=== PATIENT | male | born 1980 | race Caucasian/White ===

== ENCOUNTER 2019-07-11 03:26 | Emergency (ER) | payer OTHER ==
[~2019-07-11] VITALS: Ht 177.8 cm; Wt 72.0 kg
[2019-07-11] MEDS ORDERED: CEPH25SS PO (03:33)
[2019-07-11 04:21] LABS: BASO # 0.1 10^3/uL (0.0-0.2); BASO % 0.6 % (0.0-1.0); EOS # 0.3 10^3/uL (0.0-0.5); EOS % 2.6 % (0.0-3.0); HEMATOCRIT 43.4 % (42.0-52.0); HEMOGLOBIN 14.1 g/dl (13.5-17.5); LYMPH # 2.4 10^3/uL (1.5-5.0); LYMPH % 23.6 % (24.0-44.0); MEAN CORPUSCULAR HEMOGLOBIN 31.3 pg (27.0-33.0); MEAN CORPUSCULAR HGB CONC 32.5 g/dl (32.0-36.5); MEAN CORPUSCULAR VOLUME 96.4 fl (80.0-96.0); MONO # 1.1 10^3/uL (0.0-0.8); MONO % 10.8 % (0.0-5.0); NEUTROPHILS # 6.3 10^3/uL (1.5-8.5); NEUTROPHILS % 62.1 % (36.0-66.0); PLATELET COUNT, AUTOMATED 254 10^3/uL (150-450); WHITE BLOOD COUNT 10.1 10^3/uL (4.0-10.0)
[2019-07-11 04:56] LABS: ALBUMIN 3.5 GM/DL (3.2-5.2); ALT/SGPT 27 U/L (12-78); BILIRUBIN,TOTAL 0.3 MG/DL (0.2-1.0); BLOOD UREA NITROGEN 15 MG/DL (7-18); CALCIUM LEVEL 8.7 MG/DL (8.5-10.1); CARBON DIOXIDE LEVEL 29 MEQ/L (21-32); CHLORIDE LEVEL 108 MEQ/L (98-107); CREATININE FOR GFR 1.11 MG/DL (0.70-1.30); GLOMERULAR FILTRATION RATE > 60.0 (>60); GLUCOSE, FASTING 99 MG/DL (70-100); POTASSIUM SERUM 4.4 MEQ/L (3.5-5.1); SODIUM LEVEL 141 MEQ/L (136-145); TOTAL PROTEIN 6.6 GM/DL (6.4-8.2)
[2019-07-11] MEDS ORDERED: ISOVUE-370 76% 100ML VIAL (Q9967) As Ordered ONE (05:18)
--- NOTE | 2019-07-11 05:45 | REPVR ---
PROCEDURE INFORMATION: Exam: CT Maxillofacial With Contrast, Sinus Exam date and time: 07/11/2019 5:01 AM Age: 39 years old Clinical indication: Mass, lump, or swelling; Other: Right eyebrow; Additional info: R-supraorbital swelling, concern for pre-septal cellulitis TECHNIQUE: Imaging protocol: CT Maxillofacial with intravenous contrast. Focus on the sinuses. Radiation optimization: All CT scans at this facility use at least one of these dose optimization techniques: automated exposure control; mA and/or kV adjustment per patient size (includes targeted exams where dose is matched to clinical indication); or iterative reconstruction. Contrast material: ISO; Contrast volume: 75 ml; Contrast route: AC; COMPARISON: No relevant prior studies available. FINDINGS: Frontal sinuses: Normal. No air-fluid levels. Ethmoid air cells: Normal. No air-fluid levels. Sphenoid sinuses: Normal. No air-fluid levels. Maxillary sinuses: Normal. No air-fluid levels. Ostiomeatal units are patent. Orbits: No involvement of the right orbital fat to suggest orbital cellulitis at this time. Nasal cavity/Septum: Unremarkable. Soft tissues: Right superior and lateral periorbital soft tissue swelling. Small rim enhancing superficial abscess along the superior lateral right periorbital soft tissues measuring 9 mm on series 201, image 34. Bones/joints: Unremarkable. IMPRESSION: 1. Right superior and lateral periorbital soft tissue swelling. Small rim enhancing superficial abscess along the superior lateral right periorbital soft tissues measuring 9 mm on series 201, image 34. 2. No involvement of the right orbital fat to suggest orbital cellulitis at this time. Electronically signed by: Levi Mari On 07/11/2019 05:45:11 AM
[2019-07-11 06:32] VITALS: BP 117/65
== END 2019-07-11 06:39 | disposition home or self-care (01) ==
LOC: M ED 03:26
DX: L02.01 Cutaneous abscess of face (principal); L03.211 Cellulitis of face; F17.210 Nicotine dependence, cigarettes, uncomplicated; Z79.2 Long term (current) use of antibiotics
CPT/HCPCS: 36415; 70487; 80053; 85025; 86140; 99283; Q9967

== ENCOUNTER 2019-11-21 09:55 | Emergency (ER) | payer OTHER ==
[~2019-11-21] VITALS: Ht 177.8 cm; Wt 71.0 kg
[~2019-11-21 09:55] MED LIST: CEPH25SS PO
[2019-11-21] MEDS ORDERED: IBUPROFEN 800 MG TAB PO ONE (11:00)
[2019-11-21 11:12] LABS: HEMOGLOBIN 13.7 g/dl (13.5-17.5); MEAN CORPUSCULAR HEMOGLOBIN 31.4 pg (27.0-33.0); MEAN CORPUSCULAR HGB CONC 33.4 g/dl (32.0-36.5); PLATELET COUNT, AUTOMATED 255 10^3/uL (150-450); RED BLOOD COUNT 4.36 10^6/uL (4.30-6.10); WHITE BLOOD COUNT 6.5 10^3/uL (4.0-10.0)
--- NOTE | 2019-11-21 11:28 | REP ---
Clinical: Lower back pain extending to the right lower extremity. Peak: Axial noncontrast images from mid T11 through mid sacrum with coronal and sagittal re-formations. Findings: Vertebral bodies are intact and there is no evidence for acute fracture / compression injury or subluxation. Axial images suggest mild hypertrophy to the ligamentum flavum with minimal generalized canal stenosis. Small disc bulges at the L3-4 through L5-S1 levels cannot be excluded along with mild disc space narrowing at L5-S1. Impression: Mild canal stenosis with small posterior disc bulges are suggested. Evaluation is limited due to poor contrast, and if the patient remains symptomatic non-emergent MRI of the lumbosacral spine should be considered for further investigation. Electronically Signed by rPatik De La Cruz MD 11/21/2019 11:19 A
[2019-11-21 11:42] LABS: ALBUMIN 3.8 GM/DL (3.2-5.2); ALT/SGPT 17 U/L (12-78); BILIRUBIN,DIRECT < 0.1 MG/DL (0.0-0.2); BILIRUBIN,TOTAL 0.4 MG/DL (0.2-1.0); BLOOD UREA NITROGEN 15 MG/DL (7-18); CALCIUM LEVEL 8.5 MG/DL (8.5-10.1); CARBON DIOXIDE LEVEL 28 MEQ/L (21-32); CHLORIDE LEVEL 110 MEQ/L (98-107); GLOMERULAR FILTRATION RATE > 60.0 (>60); GLUCOSE, FASTING 80 MG/DL (70-100); LIPASE 74 U/L (73-393); POTASSIUM SERUM 4.3 MEQ/L (3.5-5.1); SODIUM LEVEL 143 MEQ/L (136-145); TOTAL PROTEIN 7.3 GM/DL (6.4-8.2)
[2019-11-21] MEDS ORDERED: IBUP80TA PO (11:59)
[2019-11-21] MEDS ORDERED: LIDO5DIS41 TOP (11:59)
[2019-11-21 12:13] VITALS: BP 119/72
--- NOTE | 2019-11-22 07:37 | ED PDOC ---
Post-Departure Follow-Up ct ls spine faxed to dr escalante for fu Dae Mosquera MD Nov 22, 2019 07:37
== END 2019-11-21 12:21 | disposition home or self-care (01) ==
LOC: M ED 09:55
DX: M51.26 Other intervertebral disc displacement, lumbar region (principal); F17.218 Nicotine dependence, cigarettes, with other nicotine-induced disorders